=== PATIENT | female | born 2000 | race Caucasian/White ===

== ENCOUNTER 2020-10-02 23:17 | Emergency (ER) | payer BC ==
[~2020-10-02] VITALS: Ht 162.6 cm; Wt 54.4 kg
== END 2020-10-03 04:42 | disposition home or self-care (01) ==
LOC: ED 23:17
DX: F16.129 Hallucinogen abuse with intoxication, unspecified (principal); F12.90 Cannabis use, unspecified, uncomplicated
CPT/HCPCS: 80053; 80176; 81001; 84443; 84703; 85025; 99285